=== PATIENT | female | born 1935 | race Caucasian/White ===

== ENCOUNTER 2017-07-10 18:12 | Emergency (ER) | payer MEDICAID, MEDICARE ==
[~2017-07-10] VITALS: Ht 165.1 cm; Wt 81.4 kg
[~2017-07-10 18:12] MED LIST: ASPI-628 PO; FURO40TA4 PO; GABA-502 PO; KEN1O TOP; LIP40 PO; LOSA25TA21 PO; METO100T3 PO; NORT25CA PO; PANT40TA3 PO; POLY1530 PO; POTA20TA7 PO; WARF3TAB7 PO; [UNRECOGNIZED DRUG - CODE] PO; [UNRECOGNIZED DRUG - CODE] TP; hydrocodone/apap PO
[2017-07-10 18:26] VITALS: BP 113/71; PULSE 81; RESP 20; O2SAT 96
--- NOTE | 2017-07-10 20:29 | ED.REPORT ---
HPI-Abd Pain F 40 and Over Date of Service Jul 10, 2017 ED Provider: Fidel Dennison MD An 82 year old female with a history of hypertension, hyperlipidemia, atrial fibrillation on Xarelto, CAD, complete AV block s/p pacemaker placement, and GERD presents to the ED with abdominal pain that began last night. Associated symptoms include an episode of yellow emesis, nausea, dizziness and a headache. She denies any recent fever, hematemesis, diarrhea, constipation or hematochezia. She is currently taking MiraLAX and her BM have been regular. Patient was sent to the ED from Urgent Care for further evaluation. Previous abdominal surgeries include hysterectomy, bilateral oophorectomy and cholecystectomy. She denies any previous similar episodes of pain. Nursing Notes Stated Complaint: ABDOMINAL PAIN/NAUSEA Chief Complaint: Female Abdominal Pain Nursing Notes Reviewed: Yes Allergies: Coded Allergies: Sulfa (Sulfonamide Antibiotics) (Verified Allergy, Severe, RASH, ITCHING, 07/10/17) Penicillins (Verified Allergy, Intermediate, Rash,Itching,, 07/10/17) levofloxacin (Verified Adverse Reaction, Severe, DYER @ INJECTION SITE, 07/10/17) Scheduled ([hydrocodone/apap]) 1 TAB PO QID dose 5/500 mg Aspirin (Aspir 81) 81 Mg Tablet.dr 81 MG PO PM Atorvastatin (Lipitor) 40 Mg Tablet 40 MG PO HS Calcium Carbonate/Vitamin D3 (Calcium 600 + Vit D Caplet) 1 Each Tablet 1 EACH PO TID Furosemide (Furosemide) 40 Mg Tablet 40 MG PO DAILY Gabapentin (Gabapentin) 300 Mg Capsule 900 MG PO HS Losartan Potassium (Losartan Potassium) 25 Mg Tablet 25 MG PO DAILY Metoprolol Tartrate (Metoprolol Tartrate) 100 Mg Tablet 100 MG PO BID Nortriptyline (Nortriptyline) 25 Mg Capsule 25 MG PO HS Pantoprazole DR (Pantoprazole DR) 40 Mg Tablet.dr 40 MG PO BID Potassium Chloride ER (Klor-Con M20) 20 Meq Tab.er.prt 20 MEQ PO DAILY Triamcinolone Acet (Triamcinolone Acetonide Ointment) 1 Applic/0.25 Gm Oint 1 APPLIC TOP BID Warfarin Sodium (Warfarin Sodium) 3 Mg Tablet 3 MG PO 3XW Friday Warfarin Sodium (Warfarin Sodium) 3 Mg Tablet 1.5 MG PO UD four times weekly on Friday Scheduled PRN Menthol (Wan Cool Therapy) 113 Gm Gel..gram. 1 APPLIC TP PRN PRN PRN For Pain Polyethylene Glycol 3350 (Laxa Clear) 1,530 Gm Powder 1 APPFUL PO HS PRN PRN For Constipation General Time Seen by MD: 20:27 Chief Complaint Abdominal pain Hx Obtained From: Patient Arrived By: Walk-in Sudden in Onset?: No Onset Occurred: Yesterday Symptom Duration: Since onset Progression since Onset: Unchanged Location: : Diffuse Quality: Painful Radiation: : Does not radiate Severity: Current: Moderate Severity: Maximum: Moderate Associated with: Reports: Nausea, Vomiting, Denies: Constipation, Diarrhea, Fever, Hematemesis, Hematochezia Pertinent Negative: Pt denies other symptoms Recent Healthcare: No recent hospitalization, Recent doctor visit Risk Factors )( AAA Risk Stratification Risk factors reviewed Past Medical History Past Medical History 1. Hypertension 2. Chronic back pain 3. Hyperlipidemia 4. GERD 5. Peripheral no bleeding 6. Atrial fibrillation (on warfarin) 7. CAD 8. Complete AV block with Pacemaker Line Insomnia Past Surgical History AV node ablation in 2009 was subsided dual-chamber pacemaker implantation Cardiac stent Hysterectomy Oophrectomy (bilateral) Cholecystectomy Smoking History Never Smoker Social History Alcohol Use: Denies alcohol use Drug Use: Denies drug use Other Social History: Good social support, Local resident Ambulatory Status Independent Review of Systems Constitutional: Denies: Fever GI: Reports: Nausea, Vomiting, Denies: Abdominal pain, Constipation, Diarrhea, Hematemesis, Hematochezia Complete sys rev & neg: except as marked. Neurologic: Reports: Dizziness, Headache Physical Exam Vital Signs Vital Signs (First) Date Time Temp Pulse Resp B/P Pulse Ox O2 Delivery O2 Flow Rate FiO2 07/10/17 18:26 36.6 81 20 113/71 96 Room Air Initial VS: Reviewed Head / Eyes: Atraumatic, Normocephalic, PERRL Neck: Supple, Non-tender, Full range of motion Extremities: Vascular intact, Neuro intact, No swelling, No tenderness Skin: Warm, Dry, No cyanosis Neurologic: Alert, Oriented, Nonfocal Psychiatric: Mood/affect normal, Behavior normal, Normal thought content General/Constitutional: Awake, Alert, No acute distress Respiratory / Chest: Atraumatic, Breath sounds NL, Breath sounds = bilat, No respiratory distress Cardiovascular: Heart rate NL, Regular rhythm, Heart sounds NL, No murmurs Abdomen: Atraumatic, Soft, No guarding, No rebound, BS normoactive, No distention Tenderness/Guarding/Rebound: Positive: Tender LLQ..., Tender RLQ... Back: Atraumatic, Inspection NL Interpretation & Diagnostics Lab Results Interpretation Result Diagram: 07/10/17204407/10/172044 Test 07/10/17 20:45 07/10/17 22:37 White Blood Count 15.5th/mm3 (3.8-10.1) Red Blood Count 4.52mil/mm3 (3.90-5.20) Hemoglobin 13.8g/dL (12.0-15.6) Hematocrit 42.0% (35.0-46.0) Mean Corpuscular Volume 92.9fL (81-100) Mean Corpuscular Hemoglobin 30.5pg (27.0-35.0) Mean Corpuscular Hemoglobin Concent 32.9% (32.0-37.0) Red Cell Distribution Width 14.5% (12.3-15.4) Platelet Count 165bil/L (150-400) Neutrophils (%) (Auto) 81.8% (40-74) Lymphocytes (%) (Auto) 9.9% (14-46) Monocytes (%) (Auto) 7.9% (4-12) Eosinophils (%) (Auto) 0% (0-5) Basophils (%) (Auto) 0.1% (0-3) Sodium Level 142mEq/L (134-144) Potassium Level 3.8mEq/L (3.5-5.2) Chloride Level 98mEq/L (97-108) Carbon Dioxide Level 27mmol/L (18-29) Blood Urea Nitrogen 23mg/dL (8-27) Creatinine 1.18mg/dL (0.57-1.00) Estimat Glomerular Filtration Rate 63mL/min (>59) Glucose Level 144mg/dL (60-99) Calcium Level 9.2mg/dL (8.5-10.1) Magnesium Level 2.0mg/dL (1.6-2.6) Total Bilirubin 1.0mg/dL (0.0-1.2) Aspartate Amino Transf (AST/SGOT) 19U/L (0-50) Alanine Aminotransferase (ALT/SGPT) 11U/L (0-32) Alkaline Phosphatase 72U/L (25-165) Total Protein 6.8g/dL (6.4-8.4) Albumin 4.1g/dL (3.4-5.0) Lipase 32U/L (13-60) Hold Torres Top Tube Received (Received) Urine Color Yellow (YELLOW) Urine Appearance Clear (CLEAR,HAZY) Urine pH 5.5 (5.0-8.0) Urine Specific [place] 1.025 (1.003-1.035) Urine Protein Negativemg/dL (NEG,TRACE) Urine Glucose (UA) Negativemg/dL (NEGATIVE) Urine Ketones Negativemg/dL (NEGATIVE) Urine Occult Blood Small (NEGATIVE) Urine Nitrite Negative (NEGATIVE) Urine Bilirubin Negative (NEGATIVE) Urine Urobilinogen Normalmg/dL (NORMAL) Urine Leukocyte Esterase Negative (NEGATIVE) Urine RBC 0-2/hpf (0-2) Urine WBC 0-5/hpf (0-5) Urine Epithelial Cells Few/hpf (NONE-MOD) Urine Crystals None seen (NONE SEEN) Urine Bacteria Few/hpf (NONE-FEW) Urine Hyaline Casts None/lpf (NONE) Urine Granular Casts None seen (NONE SEEN) Urine Waxy Casts None seen (NONE SEEN) Urine Red Blood Cell Casts None seen (NONE SEEN) Urine White Blood Cell Casts None seen (NONE SEEN) Urine Mucus None seen (None Seen) Urine Trichomonas None seen (NONE SEEN) Urine Yeast None (NONE SEEN) Urinalysis Comment None Urine Culture Reflexed Not indicated X-Ray Abdominal Interpretation IMPRESSION: Nonspecific bowel gas pattern, colonic obstipation is noted, prior cholecystectomy. Mild cardiomegaly. Pacemaking device and dual chamber leads appear normal. Dictated by: Abdulaziz Jenkins M.D. on 07/10/2017 at 21:41 Interpretation / Wet Read by: Interpret - Radiologist CT Abd / Pelvis Interpretation IMPRESSION: S/p cholecystectomy Tiny probable benign bilateral cysts 3 Minimal pneumocephaly likely secondary to prior surgery Cardiomegaly with pace maker present S/p hysterectomy Diverticulosis. No inflammatory chamges identified. Study type: Abdominal CT IV contrast, Abdom CT oral contrast Interpretation / Wet Read by: Interpret - Radiologist Re-Eval/Medical Decision Med Decision/Clinical Course 82-year-old female presenting complaining of lower abdominal pain. Her urine was negative in urgent care. Her vital signs are stable. She had a mild leukocytosis 15,[address] abdomen pelvis showed no acute pathology. Likely constipation. Return precautions given in morning if any new or worsening abdominal pain, fevers, nausea vomiting, any other new or worsening symptoms. Re-Evaluation/Progress : Time of Eval: 22:43 Patient Status: Condition improved Re-Evaluation/Progress Note: The patient's symptoms have improved upon recheck. She is informed of her results and diagnosis. All questions are addressed. The patient understands and agrees with the intended treatment plan. Counseled Regarding: Diagnosis, Lab results, Need for follow-up, When/why to return to ED Discharge & Departure Primary Impression: Constipation Additional Impression: Abdominal pain Disposition: Home Discharge Condition All VS Reviewed: Yes Condition: Stable Patient Instructions: Acute Abdominal Pain (ED), Acute Nausea and Vomiting (ED) , Constipation (ED) Additional Instructions: Thank you for trusting us with your care this evening. Your emergency department evaluation today including examination and lab work, X -ray and CT are reassuring that there is no dangerous cause for concern at this time. I believe that your symptoms are likely due to constipation. Continue to take MiraLAX as directed. I also recommend that you avoid taking you narcotic pain medication as it causes constipation and eat high fiber foods. I recommend that you schedule a follow-up appointment with your primary care physician in the 2-3 days for a recheck. Please return to the emergency department for any new or worsening conditions including any high fevers, shaking chills, nausea, vomiting, worsening abdominal pain, shortness or breath, or weakness. Referrals: Wilfredo Sims MD (PCP) Scribe Attestation Portions of this note were transcribed by Andre Fletcher. I, Dr. Dennison personally performed the history, physical exam and medical decision-making; I reviewed and confirmed the accuracy of the information in the transcribed note. copies to: Wilfredo Sims MD, Ben M MD Jul 10, 2017 20:29 ANDRE FLETCHER Jul 10, 2017 20:36
[2017-07-10] MEDS ORDERED: 0.9% Sodium Chloride 500 ML IV ONE (20:37)
[2017-07-10] MEDS ORDERED: Ondansetron 2 mg/mL 2 mL Inj IVPUSH PRN (20:40)
[2017-07-10 20:53] LABS: BASOPHILS % (AUTO) 0.1 % (0-3); EOSINOPHILS % (AUTO) 0 % (0-5); MONOCYTES % (AUTO) 7.9 % (4-12); Mean Corpuscular Hemoglobin 30.5 pg (27.0-35.0); Mean Corpuscular Volume 92.9 fL (81-100); NEUTROPHILS % (AUTO) 81.8 % (40-74); Platelet Count 165 bil/L (150-400)
--- NOTE | 2017-07-10 21:44 | DRSVH ---
PROCEDURE: X-RAY ACUTE ABDOMINAL SERIES ([id number]) INDICATIONS: abdominal pain TECHNIQUE: One view chest and two views of the abdomen were acquired. COMPARISON: None. FINDINGS: Surgical changes and devices: Prior cholecystectomy. Chest: Lungs are clear. Heart size is mildly enlarged with pacemaker in place. No pleural effusion s. No pneumoperitoneum. Abdomen: Bowel gas pattern is nonspecific, and surgical clips indicate prior cholecystectomy. No sullivan spicious calcifications. Visualized solid organ contours appear normal. There is colonic obstipatio n within the pelvis and to a mild degree within the right and left colon Bones: No suspicious bony lesions. IMPRESSION: Nonspecific bowel gas pattern, colonic obstipation is noted, prior cholecystectomy. Mil d cardiomegaly. Pacemaking device and dual chamber leads appear normal. Dictated by: Abdulaziz Jenkins M.D. on 07/10/2017 at 21:41 Approved by: Abdulaziz Jenkins M.D. on 07/10/2017 at 21:42
[2017-07-10 22:46] LABS: APPEARANCE,URINE CLEAR (CLEAR,HAZY); COLOR,URINE YELLOW (YELLOW); OCCULT BLOOD,URINE SMALL (NEGATIVE); PH,URINE 5.5 (5.0-8.0); UROBILINOGEN,URINE NORMAL (NORMAL)
[2017-07-10 23:04] VITALS: BP 147/70; PULSE 88; RESP 15; O2SAT 97
--- NOTE | 2017-07-11 08:26 | DRSVH ---
PROCEDURE: CT ABDOMEN AND PELVIS WITH CONTRAST ([id number]) INDICATIONS: lower abd pain, leukocytosis TECHNIQUE: After the administration of intravenous contrast, 5 mm thick sections acquired from the diaphragm to the symphysis. 5 mm coronal and sagittal reformats were acquired. For radiation dose reduction, the following was used: automated exposure control, adjustment of mA and/or kV according to patient siz e. COMPARISON: None. FINDINGS: Image quality: Excellent. ABDOMEN: Lung bases: Bibasilar scarring/atelectasis. Mild cardiomegaly. Solid organs: Less than 5 mm scattered multiple hepatic hypodensities probably small sessile technica lly indeterminate due to small size. Gallbladder surgically absent. There is pneumobilia within the l eft hepatic lobe, minimal. No biliary ductal dilatation. Pancreas unremarkable. The spleen is grossly normal. Adrenal glands unremarkable. Bilateral renal cortical scarring/thinning. Peritoneum and bowel: Bowel loops demonstrate normal wall thickness and caliber. No free fluid or a ir. Appendix not definitely identified. There are scattered colonic diverticula. The rectum is unrem arkable. Nodes and vessels: No retroperitoneal or mesenteric adenopathy by size criteria. Aorta and inferior vena cava are normal in size. Miscellaneous: No ventral hernias. PELVIS: Genitourinary: Bladder wall thickness is normal. Miscellaneous: No inguinal hernias or adenopathy. Bones: Diffuse osteopenia. No suspicious bony lesions. No vertebral body compression fractures. IMPRESSION: Appendix not clearly identified. No suspicious pericecal inflammatory changes. Incidental colonic diverticulosis. Minimal left hepatic pneumobilia presumably from prior surgery although recommend clinical correlatio n (erroneously described as pneumocephaly in the preliminary study report) Presumed hepatic cysts, although technically too small to characters definitively (erroneously descri bed as renal cysts in the preliminary study report) Status post cholecystectomy. Cardiomegaly. Dictated by: Paul Win M.D. on 07/11/2017 at 8:01 Approved by: Paul Win M.D. on 07/11/2017 at 8:24
== END 2017-07-10 23:05 | disposition home or self-care (01) ==
LOC: SED 18:12
DX: K59.00 Constipation, unspecified (principal); R10.84 Generalized abdominal pain; R51 Headache; I11.9 Hypertensive heart disease without heart failure; I25.2 Old myocardial infarction; I48.91 Unspecified atrial fibrillation; K21.9 Gastro-esophageal reflux disease without esophagitis; E78.5 Hyperlipidemia, unspecified; Z90.49 Acquired absence of other specified parts of digestive tract; Z95.5 Presence of coronary angioplasty implant and graft; Z79.82 Long term (current) use of aspirin; Z79.01 Long term (current) use of anticoagulants; Z88.0 Allergy status to penicillin; Z88.1 Allergy status to other antibiotic agents; Z88.2 Allergy status to sulfonamides
CPT/HCPCS: 36415; 74022; 74177; 80053; 81000; 83690; 83735; 85025; 96361; 96374; 96375; 99285; J2270; J2405; J7030; Q9967

== ENCOUNTER 2017-07-13 08:48 | Emergency (ER) | payer MEDICARE ==
[~2017-07-13] VITALS: Ht 165.1 cm; Wt 79.5 kg
--- NOTE | 2017-07-13 08:40 | ED.REPORT ---
HPI-General Illness Date of Service Jul 13, 2017 ED Provider: Joseph Machuca MD The pt is an 82 y/o female w/ a hx of HTN, hyperlipidemia, GERD, A-fib, CAD w/ stent, presenting to the ED via EMS due to nausea and vomiting. The pt also reports diarrhea and vomiting both w/ a little blood, and abdominal pain. She last vomited earlier this morning. She has been experiencing these symptoms for the last 3 days. She was seen here in the ED 3 days ago and she was told she was constipated. EMS reports her BP being 150/80, RR of 16, SaO2 of 98%, a HR of 100 on scene as well as giving 4 mg of Zofran to the pt. The pt is from [place] and is staying w/ her granddaughter for the next 3 weeks. Nursing Notes Stated Complaint: NAUSEA/VOMITING Chief Complaint: Nausea/vomiting Nursing Notes Reviewed: Yes Allergies: Coded Allergies: Sulfa (Sulfonamide Antibiotics) (Verified Allergy, Severe, RASH, ITCHING, 07/13/17) Penicillins (Verified Allergy, Intermediate, Rash,Itching,, 07/13/17) levofloxacin (Verified Adverse Reaction, Severe, DYER @ INJECTION SITE, 07/13/17) Scheduled ([hydrocodone/apap]) 1 TAB PO QID dose 5/500 mg Aspirin (Aspir 81) 81 Mg Tablet.dr 81 MG PO PM Atorvastatin (Lipitor) 40 Mg Tablet 40 MG PO HS Calcium Carbonate/Vitamin D3 (Calcium 600 + Vit D Caplet) 1 Each Tablet 1 EACH PO TID Furosemide (Furosemide) 40 Mg Tablet 40 MG PO DAILY Gabapentin (Gabapentin) 300 Mg Capsule 900 MG PO HS Losartan Potassium (Losartan Potassium) 25 Mg Tablet 25 MG PO DAILY Metoprolol Tartrate (Metoprolol Tartrate) 100 Mg Tablet 100 MG PO BID Nortriptyline (Nortriptyline) 25 Mg Capsule 25 MG PO HS Pantoprazole DR (Pantoprazole DR) 40 Mg Tablet.dr 40 MG PO BID Potassium Chloride ER (Klor-Con M20) 20 Meq Tab.er.prt 20 MEQ PO DAILY Triamcinolone Acet (Triamcinolone Acetonide Ointment) 1 Applic/0.25 Gm Oint 1 APPLIC TOP BID Warfarin Sodium (Warfarin Sodium) 3 Mg Tablet 3 MG PO 3XW Friday Warfarin Sodium (Warfarin Sodium) 3 Mg Tablet 1.5 MG PO UD four times weekly on Friday Scheduled PRN Menthol (Wan Cool Therapy) 113 Gm Gel..gram. 1 APPLIC TP PRN PRN PRN For Pain Polyethylene Glycol 3350 (Laxa Clear) 1,530 Gm Powder 1 APPFUL PO HS PRN PRN For Constipation General Time Seen by MD: 08:39 Chief Complaint Other (Nausea) Hx Obtained From: Patient Arrived By: Ambulance Sudden in Onset?: Yes Onset Occurred: 3 days ago Symptom Duration: Since onset Recent Healthcare: No recent hospitalization, Recent doctor visit Past Medical History Past Medical History 1. Hypertension 2. Chronic back pain 3. Hyperlipidemia 4. GERD 6. Atrial fibrillation (on Xarelto) 7. CAD w/ stent 8. Complete AV block with Pacemaker 9. Insomnia Reports: Coronary artery disease, Denies: Diabetes mellitus Past Surgical History AV node ablation in 2009 was subsided dual-chamber pacemaker implantation Cardiac stent Hysterectomy Oophrectomy (bilateral) Cholecystectomy Smoking History Never Smoker Social History Alcohol Use: Denies alcohol use Drug Use: Denies drug use Other Social History: Good social support, Local resident Ambulatory Status Independent Review of Systems Full Review of Systems GI: Reports: Abdominal pain, Diarrhea (w/ " a little" blood ), Nausea, Vomiting (w/ "a little" blood ) Complete sys rev & neg: except as marked. Physical Exam Vital Signs Vital Signs Date Time Temp Pulse Resp B/P Pulse Ox O2 Delivery O2 Flow Rate FiO2 07/13/17 12:06 78 25 171/59 96 Room Air 07/13/17 11:09 82 18 157/54 98 Room Air 07/13/17 08:51 36.4 84 23 185/66 99 Room Air Initial VS: Reviewed Head / Eyes: Atraumatic, Normocephalic, PERRL ENT: Mucous membranes moist, Conjunctiva normal, No scleral icterus Neck: Supple, Non-tender, Full range of motion Respiratory: Breath sounds normal, Clear to auscultation, No respiratory distress Cardiovascular: Regular rate & rhythm, Heart sounds normal, Intact distal pulses Abdomen / GI: Soft, Non-tender Skin: Warm, Dry, No cyanosis Neurologic: Alert, Oriented, Nonfocal Psychiatric: Mood/affect normal, Behavior normal, Normal thought content General/Constitutional: Awake, Alert Distress / Hydration: Positive: Distress mild Tremulous Interpretation & Diagnostics Lab Results Interpretation Result Diagram: 07/13/17 0900 07/13/17 1010 Test 07/13/17 09:00 07/13/17 10:10 07/13/17 10:20 White Blood Count 15.0th/mm3 (3.8-10.1) Red Blood Count 4.73mil/mm3 (3.90-5.20) Hemoglobin 14.2g/dL (12.0-15.6) Hematocrit 42.9% (35.0-46.0) Mean Corpuscular Volume 90.7fL (81-100) Mean Corpuscular Hemoglobin 30.0pg (27.0-35.0) Mean Corpuscular Hemoglobin Concent 33.1% (32.0-37.0) Red Cell Distribution Width 14.2% (12.3-15.4) Platelet Count 194bil/L (150-400) Neutrophils (%) (Auto) 86.2% (40-74) Lymphocytes (%) (Auto) 7.9% (14-46) Monocytes (%) (Auto) 5.5% (4-12) Eosinophils (%) (Auto) 0% (0-5) Basophils (%) (Auto) 0.1% (0-3) Sodium Level 145mEq/L (134-144) Potassium Level 2.9mEq/L (3.5-5.2) Chloride Level 105mEq/L (97-108) Carbon Dioxide Level 21mmol/L (18-29) Blood Urea Nitrogen 17mg/dL (8-27) Creatinine 0.82mg/dL (0.57-1.00) Estimat Glomerular Filtration Rate 96mL/min (>59) Glucose Level 133mg/dL (60-99) Calcium Level 9.3mg/dL (8.5-10.1) Magnesium Level 2.3mg/dL (1.6-2.6) Total Bilirubin 1.4mg/dL (0.0-1.2) Aspartate Amino Transf (AST/SGOT) 28U/L (0-50) Alanine Aminotransferase (ALT/SGPT) 14U/L (0-32) Alkaline Phosphatase 70U/L (25-165) Total Protein 6.7g/dL (6.4-8.4) Albumin 3.8g/dL (3.4-5.0) Lipase 99U/L (13-60) Urine Color Yellow (YELLOW) Urine Appearance Clear (CLEAR,HAZY) Urine pH 6.0 (5.0-8.0) Urine Specific [place] 1.025 (1.003-1.035) Urine Protein 100mg/dL (NEG,TRACE) Urine Glucose (UA) Negativemg/dL (NEGATIVE) Urine Ketones >80mg/dL (NEGATIVE) Urine Occult Blood Moderate (NEGATIVE) Urine Nitrite Negative (NEGATIVE) Urine Bilirubin Moderate (NEGATIVE) Urine Ictotest Negative (Negative) Urine Urobilinogen Normalmg/dL (NORMAL) Urine Leukocyte Esterase Negative (NEGATIVE) Urine RBC 0-2/hpf (0-2) Urine WBC 0-5/hpf (0-5) Urine Epithelial Cells Occasional/hpf (NONE-MOD) Urine Crystals None seen (NONE SEEN) Urine Bacteria None/hpf (NONE-FEW) Urine Hyaline Casts None/lpf (NONE) Urine Granular Casts None seen (NONE SEEN) Urine Waxy Casts None seen (NONE SEEN) Urine Red Blood Cell Casts None seen (NONE SEEN) Urine White Blood Cell Casts None seen (NONE SEEN) Urine Mucus Present (None Seen) Urine Trichomonas None seen (NONE SEEN) Urine Yeast None (NONE SEEN) Urinalysis Comment None Urine Culture Reflexed Not indicated ECG Interpretation ECG Interpretation: Rate 78 Afib/flutter and ventricular-paced rhythm Time: 09:41 Interpreted by: ED physician Re-Eval/Medical Decision Time of Eval: 10:16 Re-Evaluation/Progress Note: Rechecked pt who continues to feel nauseated. The pts family is in the room with her. Time of Eval: 11:13 Re-Evaluation/Progress Note: Rechecked pt. She reports taking one 300 mg capsule of Gabapentin and three capsules at bedtime. Time of Eval: 13:15 Re-Evaluation/Progress Note: Rechecked pt who is feeling much better. Informed pt of plan for treatment. Pt understands and agrees with plan for treatment. F/U instructions and RTER warnings given. All questions addressed. Counseled Regarding: Diagnosis, Lab results, Need for follow-up, When/why to return to ED Discharge & Departure Primary Impression: Gastroenteritis Additional Impressions: DEHYDRATION Narcotic withdrawal Disposition: Home Discharge Condition All VS Reviewed: Yes Condition: Stable Patient Instructions: Dehydration (ED), Gastroenteritis (ED) Additional Instructions: No dangerous condition is discovered today. I believe that the illness in your gut causing the vomiting has made it so you have become dehydrated. Repeated vomiting has also made it so that you cannot take your regular gabapentin or codeine which I think is caused something of a withdrawal syndrome. Use Reglan as needed to help control the nausea, keep yourself well-hydrated with sips of clear liquid frequently throughout the day. Take all your regular medications prescribed. Referrals: Wilfredo Sims MD (PCP) Scribe Attestation Portions of this note were transcribed by Dread Acuña. I, Dr. Ruiz personally performed the history, physical exam and medical decision-making; I reviewed and confirmed the accuracy of the information in the transcribed note. copies to: Wilfredo Sims MD, Kirk H MD Jul 13, 2017 08:40 Dread Acuña Jul 13, 2017 09:27
[~2017-07-13 08:48] MED LIST changes: +0.9% Sodium Chloride 1,000 ML IV ONE
[2017-07-13 08:51] VITALS: BP 185/66; PULSE 84; RESP 23; O2SAT 99
[2017-07-13] MEDS ORDERED: Acetaminophen IV 1,000 MG in IV Premix 1 EACH IV ONE (09:00)
[2017-07-13] MEDS: Ondansetron 2 mg/mL 2 mL Inj IVPUSH PRN ×2 (09:13→11:14)
[2017-07-13 09:27] LABS: BASOPHILS % (AUTO) 0.1 % (0-3); EOSINOPHILS % (AUTO) 0 % (0-5); MONOCYTES % (AUTO) 5.5 % (4-12); Mean Corpuscular Volume 90.7 fL (81-100); NEUTROPHILS % (AUTO) 86.2 % (40-74); Platelet Count 194 bil/L (150-400)
[2017-07-13] MEDS ORDERED: 0.9% Sodium Chloride 1,000 ML IV ONE (10:55)
[2017-07-13] MEDS ORDERED: MetoCLOpramide 5 mg/mL 2 mL Inj IVPUSH ONE (10:55)
[2017-07-13 11:09] VITALS: BP 157/54; PULSE 82; RESP 18; O2SAT 98
[2017-07-13] MEDS ORDERED: LORazepam 1 mg Tablet PO ONE (11:10)
[2017-07-13] MEDS ORDERED: HYDROcodone-APAP 10-325 mg PO ONE (11:10)
[2017-07-13 11:12] LABS: APPEARANCE,URINE CLEAR (CLEAR,HAZY); COLOR,URINE YELLOW (YELLOW)
[2017-07-13 11:13] LABS: OCCULT BLOOD,URINE MODERATE (NEGATIVE); UROBILINOGEN,URINE NORMAL (NORMAL)
[2017-07-13 11:15] LABS: ICTOTEST,URINE NEGATIVE (Negative)
[2017-07-13 11:39] LABS: Magnesium 2.3 mg/dL (1.6-2.6)
[2017-07-13 12:06] VITALS: BP 171/59; PULSE 78; RESP 25; O2SAT 96
[2017-07-13] MEDS ORDERED: METO-301 PO (13:27)
[2017-07-13 14:08] VITALS: BP 153/60; PULSE 79; RESP 22; O2SAT 94
== END 2017-07-13 14:00 | disposition home or self-care (01) ==
LOC: SED 08:48
DX: K52.9 Noninfective gastroenteritis and colitis, unspecified (principal); E86.0 Dehydration; F19.939 Other psychoactive substance use, unspecified with withdrawal, unspecified; A04.1 Enterotoxigenic Escherichia coli infection; I10 Essential (primary) hypertension; E78.5 Hyperlipidemia, unspecified; K21.9 Gastro-esophageal reflux disease without esophagitis; I48.91 Unspecified atrial fibrillation; Z88.2 Allergy status to sulfonamides; Z95.5 Presence of coronary angioplasty implant and graft; Z86.73 Personal history of transient ischemic attack (TIA), and cerebral infarction without residual deficits; Z88.0 Allergy status to penicillin; Z88.1 Allergy status to other antibiotic agents; Z79.82 Long term (current) use of aspirin; Z79.01 Long term (current) use of anticoagulants
CPT/HCPCS: 36415; 80053; 81000; 83690; 83735; 85025; 87507; 93005; 96361; 96374; 96375; 99285; J0131; J2405; J2765; J7030